=== PATIENT | male | born 1970 | race Caucasian/White ===

== ENCOUNTER 2024-01-04 09:05 | Emergency (ER) | payer OTHER, SELFPAY ==
[2024-01-04 09:07] VITALS: BP 213/124
--- NOTE | 2024-01-04 09:38 | ED.GENMED ---
History of Present Illness
General
Chief Complaint: Blood Pressure Problem
Source: patient
Exam Limitations: none
Time Seen by Provider: 01/04/24 09:28
History of Present Illness
History of Present Illness:
53-year-old male was at urgent care about a month and a half ago for respiratory issues. Noted to have a blood pressure of 170/110. Was advised to follow-up. Patient elected to stop coffee, wine, decrease salt, increased walking and activity. He
is on a weight loss medication. He has lost 15 pounds. He did buy a blood pressure 2 to 3 days ago. Last night it was 170/100. However this morning it was significantly higher. He has been complaining of intermittent headaches over the last
week. These are vague in nature. No thunderclap headache no neurologic symptoms no nausea or vomiting no visual issues. No focal issues. Currently he does not have a headache.
Past History
Past History
ED Past Medical History: None
Social History
Personal:
Living: with family
Review of Systems
Review of Systems
All Other Systems: Not applicable
Respiratory: Reports no symptoms
Cardiac: Reports no symptoms
ABD/GI: Reports no symptoms
Neurological: Denies dizzy, weakness or numbness
Phy Exam
Physical Exam
Physical Exam:
GENERAL: Alert and oriented in no apparent distress. Ambulated in the room without difficulty
EYE: Orbits normal.
NECK: Supple, no thyroid palpable
CARDIAC: Regular rate and rhythm without any obvious murmurs.
LUNGS: Clear breath sounds,normal
ABDOMEN: Soft, without focal tenderness or distention. Elevated BMI
NEUROLOGICAL: Alert and oriented , grossly non-focal
SKIN: Warm and dry, no rash or lesion, no discoloration, skin intact.
MUSCULOSKELETAL: No edema,no deformity.Good color
PSYCH: Normal and appropriate interaction.
Course
Orders/Labs/Results
Orders:
Orders
01/04/24 09:36
Electrocardiogram (*1) Stat
Reason for Study: Other
Other Reason for Exam: Headache
Cardiac Monitoring- Treatment ONCE
EKG- Treatment ONCE
IV Insert/Care/Rem.- Treatment PRN
Pulse Ox/cont/shift [RESP] Stat
Quantity: 1
01/04/24 09:37
CT Head W/o Iv Contrast Urgent
Comment:
Reason For Exam: Intermittent headaches. Elevated blood pressure r
01/04/24 10:59
Basic Metabolic Panel Urgent
Complete Blood Count/With Diff Urgent
TSH Reflex To Free T4 Urgent
Urinalysis Reflex To Culture Urgent
Date Specimen was Collected: 01/04/24
Time Specimen was Collected: 09:40
01/04/24 11:58
Amlodipine [Norvasc] 5 mg PO NOW STA
Abnormal Lab Results
01/04/24
10:59
Glucose 103 H mg/dl
(70-99)
01/04/24 10:59
01/04/24 10:59
Vital Signs
Initial and Last Documented VS:
Initial Vital Signs
Temp Pulse Resp BP Pulse Ox
98.0 F 106 18 213/124 96
01/04/24 09:07 01/04/24 09:07 01/04/24 09:07 01/04/24 09:07 01/04/24 09:07
Last Documented Vital Signs
Temp Pulse Resp BP Pulse Ox
98.0 F 76 14 201/101 95
01/04/24 09:07 01/04/24 12:16 01/04/24 12:15 01/04/24 12:16 01/04/24 12:15
MDM/Problems Addressed
Differential Diagnosis Includes:
Patient with elevated blood pressure reading likely for years. He was told a few years ago he should be on blood pressure medication. He is describing no current cardiac symptoms. The respiratory symptoms he had a month and a half ago resolved.
His lungs are clear. He is not heart failure. He is not describing ischemic heart disease. He is having intermittent headaches although he is having none now. Workup will include renal function urinalysis for protein thyroid EKG head CT.
Continued observation of his blood pressure. Will likely start blood pressure medication as he is describing chronic blood pressure issues that have been unmanaged
*Radiology
Radiology exam reviewed: radiology read reviewed (neg)
*Pulse Oximetry
Patient hypoxic: no
*EKG
Interpreted by ED Provider?: Yes
Interpretation: abnormal
Comparison EKG: changes noted
Heart Rate: 86
Rate: normal
Rhythm: sinus
[place]: normal axis
Interval: normal interval
QRS Pattern: normal QRS
Ischemia: no ischemia
*Critical Care Note
Total Time (30-74mins, 75-104mins- exclusive of procedures): Not Applicable
Update Note
Update Note:
Patient's exam and workup are unremarkable. Clinically stable. Blood pressure is 177/85. Because he clearly has a longstanding hypertension we will start amlodipine to follow-up. Patient is comfortable with this approach
ED Attending Note
-
Portions of this chart may have been created with voice recognition software.� Occasional wrong word or��sound alike� substitutions may have occurred due to the inherent limitations of voice recognition software.
Discharge Plan
Departure
Patient Disposition: Home (Routine Discharge)
Date of Disposition: 01/04/24
Time of Disposition: 12:00
Patient with high blood pressure during this ER visit?: Yes
Discharge Problem:
Headache/hypertension
Instructions: Headache, Adult ED, BLOOD PRESSURE
Prescriptions:
New
amlodipine 5 mg tablet
5 mg PO DAILY Qty: 30 0RF
Referrals:
Tip Hernandez, DO [Family Provider] - Follow up in 2-3 days
Activity Restrictions/Additional Instructions:
Your prescription was sent to your pharmacy
Follow-up closely with your primary physician
Interventions
Interventions:
*Risk Screen - Suicide Last Done: 01/04/24 09:36
*General Assessment Last Done: 01/04/24 09:36
*Neglect/Abuse Screening Last Done: 01/04/24 09:36
ED- Fall Risk Assessment Last Done: 01/04/24 09:36
*Nursing Disposition Last Done: 01/04/24 13:02
ED- Cardiac Assessment Last Done: 01/04/24 09:36
ED- Neurological Assessment Last Done: 01/04/24 09:36
ED- Pulmonary Assessment Last Done: 01/04/24 09:36
Discharge Date and Time
Discharge Date/Time: 01/04/24 12:05
Print Language: [id number]
[2024-01-04 10:00] VITALS: BP 177/86
[2024-01-04 11:23] LABS: Urine Albumin Negative (Neg - Trace); Urine Bilirubin Negative (Negative); Urine Character Clear (Clear); Urine Color Yellow; Urine Glucose Negative (Negative); Urine Ketone Negative (Negative); Urine Leukocyte Negative (Negative); Urine Nitrite Negative (Negative); Urine Occult Blood Negative (Negative); Urine Specific Gravity 1.015 (<1.030); Urine Urobilinogen Negative (Neg - 1+)
[2024-01-04 11:24] LABS: % Basophils 0.8 % (0-2); % Eosinophils 0.9 % (0-6); % Immature Granulocytes 0.2 % (0-0.5); % Monocytes 5.4 % (1.7-9.3); % Neutrophils 61.7 % (42.2-75.2); Absolute Basophils 0.1 10^3/uL (0-0.2); Absolute Eosinophils 0.1 10^3/uL (0-0.7); Absolute Lymphocytes 2.1 10^3/uL (1.2-3.4); Absolute Monocytes 0.4 10^3/uL (0.1-0.6); Absolute Neutrophils 4.1 10^3/uL (1.4-6.5); Hematocrit 44.1 % (39.0-52.0); Hemoglobin 15.8 g/dL (13.0-18.0); Mean Corp Hgb Conc. 35.8 g/dL (33.0-37.0); Mean Corpuscular Hgb 30.2 pg (27.0-31.0); Mean Corpuscular Volume 84.3 fL (80.0-94.0); Mean Platelet Volume 10.2 fL (7.4-10.4); Nucleated Red Blood Cells % 0 % (-); Platelet Count 240 10^3/uL (130-400); Red Blood Cell Count 5.23 10^6/uL (4.70-6.10); Red Cell Dist. Width 12.4 % (11.5-14.5); White Blood Cell Count 6.6 10^3/uL (4.8-10.8)
[2024-01-04 11:39] LABS: Blood Urea Nitrogen 17 mg/dl (9-20); Calcium 9.9 mg/dl (8.4-10.2); Carbon Dioxide 25 mmol/L (22-30); Chloride 102 mmol/L (98-107); Glucose 103 mg/dl (70-99); Potassium 4.7 mmol/L (3.5-5.1); Sodium 138 mmol/L (135-145); eGFR > 60.00
[2024-01-04 12:00] VITALS: BP 173/102
[2024-01-04 12:09] LABS: TSH Reflex To Free T4 0.53 uIU/ml (0.47-4.68)
[2024-01-04] MEDS: NORVASC 5 MG PO (12:16)
== END 2024-01-04 12:05 | disposition home or self-care (01) ==
LOC: EMR 09:05
PROVIDERS: EMERGENCY PHYSICIAN Emergency Medicine; FAMILY PHYSICIAN Family Medicine
DX: I10 Essential (primary) hypertension (principal); R51.9 Headache, unspecified
CPT/HCPCS: 99285; 70450; 80048; 81003; 84443; 85025; 93005

== ENCOUNTER → 2025-03-17 12:33 | Outpatient (REF) | payer OTHER, SELFPAY | LOC: DHVS 12:33 | PROVIDERS: ATTENDING PHYSICIAN Internal Medicine Nephrology; FAMILY PHYSICIAN Physician Assistant Medical | DX: I10 Essential (primary) hypertension (principal) | CPT/HCPCS: 93975 ==